=== PATIENT | male | born 1970 | race Caucasian/White ===

== ENCOUNTER 2016-10-23 18:36 | Observation (INO) ==
[~2016-10-23 18:36] MED LIST: Thiamine (B-1) 100 MG, Folic Acid 1 MG, MVI, adult with vitamin K 10 ML in 0.9 % Sodi... IVPB SCH
[2016-10-23] MEDS ORDERED: *HR* LORazepam 2 MG/ML VIAL IVP PRN ×3 (20:02)
[2016-10-23] MEDS ORDERED: Naloxone 0.4 MG/ML INJ IVP PRN (20:02)
[2016-10-23] MEDS ORDERED: 0.9 % Sodium Chloride 1,000 ML ONE (20:09)
[2016-10-23 20:29] LABS: ABG Base Excess 4.2 mEq/L (-2.0 to 3.0); ABG HCO3 27.3 mEQ/L (21-27); ABG Oxygen Saturation 96 % (95-98); ABG PCO2 35 mmHg (35-45); ABG PO2 75 mmHg (85-104); ABG TCO2 28.4 mEq/L (20-26)
[2016-10-23 20:30] LABS: Blood Gas FiO2 21 %
[2016-10-23] MEDS: 0.9 % Sodium Chloride 1,000 ML IVC SCH (20:37)
[2016-10-23] MEDS ORDERED: Thiamine (B-1) 100 MG, Folic Acid 1 MG, MVI, adult with vitamin K 10 ML in 0.9 % Sodi... IVPB SCH (21:00)
--- NOTE | 2016-10-23 21:58 | Event Note ---
Date of Encounter: 10/23/16 Time of Encounter: 21:56 Patient seen and examined with medical policy specialist. Alcohol withdrawal seizure. Quit alcohol 2 days ago. Starts CIWA protocol. He is currently alert oriented times 3 and maintaining his airway. No focal neurological deficits.
--- NOTE | 2016-10-23 22:03 | Internal Med History&Physical ---
Date of Encounter: 10/23/16 Time of Encounter: 22:00 Assessment and Plan (1) New onset seizure Current visit: No Status: Acute Likely related to alcohol withdrawal. Intoxication with other illicit substances including cocaine and amphetamines could also trigger seizures. Will patient place on CIWA protocol and treat withdrawal symptoms with Ativan. Will obtain EEG. Head CT is normal, suspicion for structural brain lesion is low at this time so will hold off on MRI or neurology consult. We will continue to monitor patient for recurrent seizures. (2) Drug abuse Current visit: No Status: Acute Patient admits to marijuana use however adamantly denies any other substances of abuse. Patient continues to deny his substance abuse when confronted with results of urine drug screen. (3) Alcohol abuse Current visit: No Status: Acute The patient reports 12 beers daily, reports history of tremors when he does not drink but denies withdrawal seizures. (4) DVT prophylaxis Current visit: Yes Status: Acute Not indicated at this time due to new onset seizure and possible recurrent seizures. Anticipate hospitalization less than 48 hours, if the patient remains hospitalized for greater than 48 hours and we will institute DVT prophylaxis. Internal Medicine - H&P: HPI Chief complaint: Seizure Admitted From: Hospital to Hospital Transfer Plans for Post Hospital Care: Home History of present illness: Mr. Dominguez is a 46 year old male with history of alcohol abuse who presents with seizures. Patient states that he was at home this morning and felt like his normal self then he had an episode witnessed by his mother where he had upper extremity twitching, foaming at the mouth, urinary and fecal incontinence. Patient states that he does not have a recollection of these events and the next thing the patient remembers is waking up in the emergency department. Patient had another episode in the emergency department where he went limp, then became confused and agitated, flushed and diaphoretic and was treated with 2 mg of Ativan and his symptoms resolved. The patient again does not have a recollection of these events. Patient states that he drinks 12 beers daily and had his last drink the day before yesterday. Patient reports marijuana use but denies adamantly any other drugs of abuse. Patient denies any history of seizures, any recent trauma or illness. Past Med Surg Social Fam HX - Past Medical History Medical history: hypertension, other Psychiatric history: no psych history - Past Surgical History Surgical History: no surgical history - Social History Smoking Status: Current every day smoker Alcohol use: heavy, recent Drug use: none Internal Medicine - H&P: Meds No Known Home Drugs 01/22/15 [History] Allergies No Known Allergies Allergy (Verified 01/22/15 12:39) All Systems PM: A 10-system review of systems was performed and is negative for pertinent findings except as documented above in the HPI. - Constitutional Constitutional: no chills, no fever(s) - EENT Eyes: no change in vision Nose, mouth and throat: no sinus pain, no sinus pressure - Cardiovascular Cardiovascular ROS IM: no chest pain, no dyspnea, no syncope - Respiratory Respiratory: no cough, no chest congestion, no excessive phlegm production, no change in phlegm color - Gastrointestinal Gastrointestinal: no abdominal pain, no diarrhea, no nausea, no vomiting - Genitourinary Genitourinary ROS male: no dysuria, no urinary frequency, no urinary hesitancy, no urinary urgency - Musculoskeletal Musculoskeletal ROS IM: no numbness, no tingling - Neurological Neurological ROS: convulsions, tremor(s), no focal weakness, no frequent falls, no numbness, no weakness - Psychiatric Psychiatric: no auditory hallucinations, no hallucinations, no panic attacks, no suicidal ideation - Constitutional Vitals: Temp Pulse Resp BP Pulse Ox 99.2 F 87 20 156/96 95 10/23/16 20:00 10/23/16 21:07 10/23/16 21:07 10/23/16 21:07 10/23/16 21:07 General appearance: Present: A&O X 3, no acute distress - Head Head exam: Present: atraumatic, normal inspection, normocephalic - Eye Eye exam: Present: EOMI, normal appearance, PERRL, sclera anicteric - ENT ENT exam: Present: mucous membranes moist Additional comments: Superficial ulceration to the tongue. Poor dentition. - Neck Neck exam general surgery: Present: supple. Absent: tenderness, nuchal rigidity - Respiratory Respiratory exam: Present: CTAB. Absent: rales, respiratory distress, rhonchi, wheezes, tachypnea - Cardiovascular Cardiovascular exam: Present: RRR. Absent: gallop, rubs, systolic murmur - GI/Abdominal GI/Abdominal exam: Present: normal bowel sounds, soft. Absent: distended, tenderness - Extremities Exam Extremities exam: Present: warm. Absent: pedal edema, tenderness - Neurological Exam Neurological exam: Present: alert, CN II-XII intact, oriented X3, reflexes normal, no focal deficits, strengths equal and symetr throughout. Absent: motor sensory deficit, facial droop, speech deficit - Psychiatric Psychiatric exam: Present: normal affect, normal mood Internal Med - H&P Results - ABG Interpretation ABG results: 10/23/16 20:20 ABG pH 7.50 H ABG pCO2 35 ABG pO2 75 L ABG HCO3 27.3 H ABG Total CO2 28.4 H ABG O2 Saturation 96 ABG Base Excess 4.2 H
[2016-10-23] MEDS ORDERED: Magnesium Sulfate 2 GM in D5% in Water 100 ML IVPB ONE (23:13)
[2016-10-24] MEDS: 0.9 % Sodium Chloride 1,000 ML IVC SCH (01:25)
[2016-10-24 02:52] LABS: Basophils % 0.3 %; Hematocrit 35.5 % (37.5-50.1); Hemoglobin 12.5 g/dL (12.9-16.9); Immature Granulocytes % 0.4 % (0-4); Immature Platelets 7.6 % (1.1-6.1); Lymphocytes # 1.3 K/mcL (0.6-4.6); Lymphocytes % 11.8 %; Mean Corpuscular HGB Conc 35.2 g/dL (31.6-35.5); Mean Corpuscular Volume 90.8 fL (83.0-100.0); Mean Platelet Volume 10.1 fL (9.4-12.4); Monocytes # 1.2 K/mcL (0.0-1.3); Monocytes % 10.9 %; Neutrophils # 8.1 K/mcL (1.6-8.9); Platelet Count 103 K/mcL (140-400); Red Blood Count 3.91 M/mcL (4.19-5.50); Red Cell Distribution Width 14.6 % (11.5-14.5); Segmented Neutrophils % 76.6 %
[2016-10-24 03:06] LABS: Alanine Aminotransferase 57 Units/L (0-55); Albumin 2.8 g/dL (3.5-5.0); Albumin/Globulin Ratio 0.7 (1.1-2.2); Alkaline Phosphatase 88 Units/L (38-126); Aspartate Amino Transferase 96 Units/L (5-34); BUN/Creatinine Ratio 10 (6-26); Blood Urea Nitrogen 6 mg/dL (8-26); Calcium 8.4 mg/dL (8.6-10.8); Carbon Dioxide 24 mEq/L (19-29); Chloride 98 mEq/L (98-109); Globulin 3.8 g/dL (2.4-3.5); Glucose 91 mg/dL (70-99); Osmolality,Calculated 271 (280-300); Phosphorous 1.8 mg/dL (2.3-4.7); Potassium 3.3 mEq/L (3.5-4.5); Sodium 132 mEq/L (136-145); Total Protein 6.6 g/dL (6.0-8.3); eGFR For African Americans > 60 (> 60); eGFR For Non-African Americans > 60 (> 60)
--- NOTE | 2016-10-24 04:26 | Event Note ---
Date of Encounter: 10/24/16 Time of Encounter: 04:25 Patient admitted last night for new onset seizure, presumed related to alcohol withdrawal. Patient has been stable throughout the night with no withdrawal symptoms are no seizures. Patient is awake and alert at this time with no complaints. Patient is stable for transfer to the floor with telemetry.
[2016-10-24] MEDS ORDERED: Naloxone 0.4 MG/ML INJ IVP PRN (05:40)
[2016-10-24] MEDS ORDERED: *HR* LORazepam 2 MG/ML VIAL IVP PRN ×3 (05:40)
[2016-10-24] MEDS ORDERED: *HR* Heparin 5,000 UNIT/ML VIAL SQ SCH (06:00)
[2016-10-24 08:24] VITALS: BP 129/83
[2016-10-24] MEDS ORDERED: Pantoprazole 40 MG VIAL IVPB SCH (09:00)
--- NOTE | 2016-10-24 10:50 | EEG/EMG/Oth Biometrics Report ---
EEG Procedure Report Date of procedure: 10/24/16 EEG Procedure: Routine EEG Procedure Note: This EEG was acquired with standard international 1020 system with EKG recording. The background EEG activity was characterized by the presence of mixture of alpha, theta and delta activity with best frequency of 11 Hz. The background activity was reactive to eye openings. Sleep stages were not identified during this tracing. Drowsiness was characterized by drop off of posterior dominant Alpha rhythm. There are no electrographic seizures identified during this tracing. There are no epileptiform discharges and focal slowing noted during this recording. Photic stimulation produced and hyperventilation produced no abnormalities. EKG tracing showed no significant cardiac dysrhythmia. Impression: This is essentially a normal awake and drowsy EEG. Clinical Correlation: Normal EEGs, however, do not exclude epilepsy. Clinical correlation is advised.
--- NOTE | 2016-10-24 11:33 | Discharge Summary ---
Date of Encounter: 10/24/16 Time of Encounter: 11:31 - Discharge Diagnosis (1) New onset seizure Priority: Primary Status: Acute (2) Alcohol abuse Priority: Secondary Status: Acute - Discharge Medications Prescriptions: Folic Acid 1 mg PO DAILY #30 tablet Thiamine (B-1) [Vitamin B-1] 100 mg PO DAILY #30 tablet Home Medications: Folic Acid 1 mg PO DAILY #30 tablet 10/24/16 [Rx] Thiamine (B-1) [Vitamin B-1] 100 mg PO DAILY #30 tablet 10/24/16 [Rx] Allergies/Adverse Reactions: Allergies No Known Allergies Allergy (Verified 10/24/16 10:14) Date of admission: 10/23/16 19:50 Primary care physician: PCP NO Consults: 10/23/16 20:02 Consult to Build Manager [CONS] Routine Reason for SW Consult: Alcohol/drug use/withdrawal 10/23/16 21:59 Consult to Interpret Exam [CONS] Routine Consulting Provider: Akash De La Rosa Consult to Interpret Exam: Interpret EEG 10/24/16 09:35 Consult to Interpret Exam [CONS] Routine Consulting Provider: Akash De La Rosa Consult to Interpret Exam: Interpret EEG Discharging clinician: Chandler Kiran Anticipated date of discharge: 10/24/16 - Patient Status Disposition: Home, Self-Care Condition: Fair Functional capacity at discharge: independent ambulation Overall status at discharge: patient is back to baseline - Discharge Instructions Follow Up With: SEDRICK,PCP [Primary Care Provider] - - Diet and Activity Activity: resume usual activities as tolerated Diet: advance to your usual diet Interval History: Mr. Dominguez is a 46 year old male with history of alcohol abuse who presents with possible seizures. Patient states that he was at home this morning and felt like his normal self then he had an episode witnessed by his mother where he had upper extremity twitching, foaming at the mouth, urinary and fecal incontinence. Patient states that he does not have a recollection of these events and the next thing the patient remembers is waking up in the emergency department. Patient had another episode in the emergency department where he went limp, then became confused and agitated, flushed and diaphoretic and was treated with 2 mg of Ativan and his symptoms resolved. The patient again does not have a recollection of these events. Patient states that he drinks 12 beers daily and had his last drink the day before yesterday. Patient reports marijuana use but denies adamantly any other drugs of abuse. Patient denies any history of seizures, any recent trauma or illness. he was admitted for observation for recurent seizures. seizures are most likely 2/2 his alcohol abuse and intoxication, there is no indication for anti- seizure medication at this time. he has no symptoms of withdrawal now, EEG was done which is essentially normal. patinet wanting to leave today and freire ot want to have any further evaluation. he was made aware that he may have recurrent seizures and encouraged to quit. he still wants to be dc and says he will come to ED if needed. he is being dc in stable condition Hospital course: Mr. Dominguez is a 46 year old male Time spent discussing smoking cessation with patient: more than 10 minutes - Time Spent with Patient Total time spent providing and/or coordinating discharge services: Greater than 30 minutes - Constitutional Vitals: Temp Pulse Resp BP Pulse Ox 98.1 F 64 14 129/83 94 10/24/16 08:18 10/24/16 08:18 10/24/16 08:18 10/24/16 08:18 10/24/16 08:18 General appearance: Present: A&O X 3, no acute distress Exam: Head Head exam: Present: atraumatic, normal inspection, normocephalic - Eye Eye exam: Present: EOMI, normal appearance, PERRL, sclera anicteric - ENT ENT exam: Present: mucous membranes moist Additional comments: Superficial ulceration to the tongue. Poor dentition. - Neck Neck exam general surgery: Present: supple. Absent: tenderness, nuchal rigidity - Respiratory Respiratory exam: Present: CTAB. Absent: rales, respiratory distress, rhonchi, wheezes, tachypnea - Cardiovascular Cardiovascular exam: Present: RRR. Absent: gallop, rubs, systolic murmur - GI/Abdominal GI/Abdominal exam: Present: normal bowel sounds, soft. Absent: distended, tenderness - Extremities Exam Extremities exam: Present: warm. Absent: pedal edema, tenderness - Neurological Exam Neurological exam: Present: alert, CN II-XII intact, oriented X3, reflexes normal, no focal deficits, strengths equal and symetr throughout. Absent: motor sensory deficit, facial droop, speech deficit - Psychiatric Psychiatric exam: Present: normal affect, normal mood
[2016-10-24] MEDS ORDERED: Thiamine (B-1) 100 MG, Folic Acid 1 MG, MVI, adult with vitamin K 10 ML in 0.9 % Sodi... IVPB SCH (21:00)
== END 2016-10-24 14:08 | disposition home or self-care (01) ==
LOC: ICNU 19:50 → INTOOBSV 19:50
PROVIDERS: ADMIT Hospitalist; ATTEND Hospitalist